=== PATIENT | male | born 1995 | race Caucasian/White ===

== ENCOUNTER 2017-03-11 20:39 | Emergency (ER) | payer OTHER ==
[~2017-03-11] VITALS: Ht 182.9 cm; Wt 86.2 kg
[2017-03-11 20:55] VITALS: TEMP 36.3; Ht 182.9 cm; Wt 86.2 kg
[2017-03-11] MEDS ORDERED: IBUP-1050 PO (21:33)
--- NOTE | 2017-03-11 21:52 | DIAGNOSTIC IMAGING REPORT ---
NASAL BONES 3 VIEWS CLINICAL HISTORY: Nasal injury. FINDINGS: 3 views of the nasal bones are obtained. No prior studies are available for comparison at the time of dictation. The skeletal structures are well mineralized. A minimally depressed left nasal bone fracture is suspect. Overlying soft tissue edema is observed. The bony nasal septum is intact as imaged. The bony orbits appear maintained. The imaged paranasal sinuses appear clear. IMPRESSION: Suspect a minimally depressed left nasal bone fracture. Electronically signed by: Yobany Kiser M.D. 03/11/2017 9:50 PM Dictated Date/Time: 03/11/2017 9:49 PM
--- NOTE | 2017-03-11 22:40 | EMERGENCY ROOM VISIT NOTE ---
ED Visit Note First contact with patient: 20:59 CHIEF COMPLAINT: Nasal injury this evening HISTORY OF PRESENT ILLNESS: T patient is an otherwise healthy 21-year-old white male who presents the emergency department for evaluation of an injury to his nose that occurred about an hour ago. He was exercising, doing a pull-up, when he accidentally struck the bridge of his nose on the pull-up bar. He states that he had bleeding from the right nostril as well as from a small laceration on the bridge of his nose immediately. Epistaxis has since stopped. He notes some scant oozing from the laceration on the bridge of his nose. He notes some minor discomfort and states that the left side is slightly difficult to breathe out of. He took ibuprofen, did not apply any ice. He denies any headache, lightheadedness, dizziness, nausea, vomiting or changes in vision. No other injuries are noted. He denies any prior nasal injury. REVIEW OF SYSTEMS: Review of systems as per HPI. All other systems reviewed were negative. At least 6 systems reviewed. PMH: Electronic medical records are reviewed and summarized as above/below. See Problem List. His tetanus is up-to-date. SOCIAL HISTORY: Patient is a college student from [place] who lives locally. Nonsmoker. PHYSICAL EXAM: Vital Signs: Reviewed Nurse's notes. CONSTITUTIONAL: Patient is a pleasant, well-appearing 21-year-old white male who is awake and alert and in no acute distress. EYES: PERRL, EOMs full, no discharge or injection. NOSE: The bridge of the nose is slightly ecchymotic and swollen. Nose is tender to palpation, it is not displaced significantly to one side or the other. There is some dried blood in the nostrils but no active bleeding. No hematoma noted. He does have a very small puncture wound noted over the bridge of the nose with some scant oozing, and a few other smaller superficial scratches. MOUTH: Mucous membranes moist, no lesions, tongue and gums appear normal. THROAT: No pharyngeal injection, exudates, or tonsillar hypertrophy. Airway is patent. FACE: No facial bony tenderness appreciated. NEUROLOGICAL: Sensory and motor functions grossly intact, normal gait, cooperative and appropriate. EMERGENCY DEPARTMENT COURSE: The patient was seen and evaluated as above. After discussion with him he would like to pursue nasal bone x-rays which were performed and suspicious for a left-sided nasal bone fracture. Soft tissue swelling was noted. The bridge of the nose was cleansed with saline, and hemostasis was maintained. The puncture wound was reapproximated using Dermabond. The patient has an isolated nasal injury. He does not have any evidence for septal hematoma. I do not suspect other facial bone fracture. The patient was encouraged to follow-up with ENT surgery if he would likely nose reevaluated once with the swelling and bruising have gone down. Medication reconciliation: I attest that I have personally reviewed the patient' s current medication list. Blood pressure screening : Patient was found to have normal blood pressure on screening and does not require follow-up. NASAL BONES 3 VIEWS CLINICAL HISTORY: Nasal injury. FINDINGS: 3 views of the nasal bones are obtained. No prior studies are available for comparison at the time of dictation. The skeletal structures are well mineralized. A minimally depressed left nasal bone fracture is suspect. Overlying soft tissue edema is observed. The bony nasal septum is intact as imaged. The bony orbits appear maintained. The imaged paranasal sinuses appear clear. IMPRESSION: Suspect a minimally depressed left nasal bone fracture. Current/Historical Medications Scheduled PRN Ibuprofen (Advil), 800 MG PO DAILY PRN for Pain or Fever Allergies Coded Allergies: No Known Allergies (Unverified , 03/11/17) Vital Signs Date Time Temp Pulse Resp B/P (MAP) Pulse Ox O2 Delivery O2 Flow Rate FiO2 03/11/17 22:52 84 16 118/71 98 03/11/17 20:55 36.3 86 20 116/67 99 Room Air Departure Information Impression Primary Impression: Nasal fracture Referrals [facility] (PCP) Lani Ann M.D. Patient Instructions My [facility] Additional Instructions Ibuprofen(Motrin, Advil) may be used for fever or pain. Use 600mg every six hours as needed. Take with food. Avoid using more than 2400mg in a 24 hour period. Do not use 2400mg per day for more than three consecutive days without physician direction. Prolonged inappropriate use can lead to stomach upset or ulcers. (AND/OR) Acetaminophen(Tylenol) may be used for fever or pain. Use 1000mg every six hours as needed. Avoid using more than 3000mg in a 24 hour period. Ice to the nose for 10-15 minutes as needed for pain and swelling. May cleanse the nose normally with mild soap and water. Allow the Dermabond to the fall off on its own. Activity as tolerated. Follow-up with ENT or plastic surgery if you would like the nose reevaluated when the swelling and bruising have gone down.
[2017-03-11 22:52] VITALS: BP 118/71; PULSE 84; O2SAT 98
== END 2017-03-11 22:50 | disposition home or self-care (01) ==
LOC: C.EDB 20:41 → C.EDD 22:50
DX: S02.2XXA Fracture of nasal bones, initial encounter for closed fracture (principal); S01.23XA Puncture wound without foreign body of nose, initial encounter; W22.8XXA Striking against or struck by other objects, initial encounter; Y93.B2 Activity, push-ups, pull-ups, sit-ups